=== PATIENT | male | born 1945 | race Caucasian/White ===

== ENCOUNTER → 2017-12-18 | Day surgery (SDC) | payer MEDICARE, OTHER ==
[~2017-12-18] MED LIST: ARICEPT5 MG PO; ASPIR 8181 MG; CEFAZOLIN SOD 1 GM VIAL ONE; CITALOPRAM HBR20 MG PO; DOXYCYCLINE HY100 MG PO; GLYCOPYRROLATE INJ 1MG/ 5 ML SYR ONE; HYZAAR 100-251 EACH; LIDOCAINE HCL 2% LOCAL INJ 5 ML SDV VIAL INJ ONE; NITROGLYCERIN0.4 MG SL; NORCO 10-325 T1 EACH; PRAVASTATIN SOD10 MG; PROPOFOL IV EMULSION 10 MG/ML 20 ML VIAL ONE; ROBAXIN500 MG; ZETIA10 MG PO; [UNRECOGNIZED DRUG - REMARK] INJ
[2017-12-18 16:10] VITALS: BP 120/69
--- NOTE | 2017-12-18 20:13 | Operative Report ---
DATE OF PROCEDURE: December 18, 2017 PROCEDURE PERFORMED: Colonoscopy and a polypectomy note. REFERRING PHYSICIAN: Dr. Jean Pierre Joiner INDICATIONS FOR COLONOSCOPY: Change in bowel habits, history of colon polyps. MEDICATION: Patient was done under MAC. Please see anesthesiologist note. PROCEDURE IN DETAIL: With the patient in left lateral decubitus position, flexible fiberoptic Olympus colonoscope was inserted into the rectum with ease and advanced all the way to the cecum. The scope was then withdrawn slowly. Mucosa overlying the cecum appeared to be within normal limits. Three polyps were hot biopsied, 1 polyp was snared from the ascending colon. The transverse grossly appeared to be within normal limits. Mucosa overlying the left colon revealed some patchy mild inflammatory changes, random biopsies were obtained. Two polyps were hot biopsied from the sigmoid colon. The scope was then retroflexed into the distal rectum, and small internal hemorrhoids were noted, none of which was actively bleeding. The scope was then straightened out. It was subsequently withdrawn. Patient tolerated the procedure well. IMPRESSION: 1. Ascending colon polyps x4, 3 hot biopsied and 1 snared. 2. Diverticulosis. 3. Mild patchy left-sided colitis. 4. Sigmoid colon polyps x2, hot biopsied. 5. Internal hemorrhoids, none actively bleeding. PLAN: Follow up histology. Initiate VSL#3 1 p.o. every day, Bentyl 10 mg 1 p.o. t.i.d. Patient might benefit from a followup colonoscopy in 3 years. Job#: [id number] cc:JEAN PIERRE JOINER MD
== END | disposition home or self-care (01) ==
LOC: OR 12:38
PROVIDERS: ATTEND Internal Medicine Gastroenterology
DX: K51.50 Left sided colitis without complications (principal); D12.2 Benign neoplasm of ascending colon; K59.00 Constipation, unspecified; K57.30 Diverticulosis of large intestine without perforation or abscess without bleeding; K64.8 Other hemorrhoids; I25.2 Old myocardial infarction; I10 Essential (primary) hypertension; I44.0 Atrioventricular block, first degree; R53.1 Weakness; E78.00 Pure hypercholesterolemia, unspecified; F03.90 Unspecified dementia, unspecified severity, without behavioral disturbance, psychotic disturbance, mood disturbance, and anxiety; Z79.82 Long term (current) use of aspirin; Z86.73 Personal history of transient ischemic attack (TIA), and cerebral infarction without residual deficits; Z85.3 Personal history of malignant neoplasm of breast; Z96.659 Presence of unspecified artificial knee joint
CPT/HCPCS: 45380; 45384; 45385; 88305; J0690; J2001; J3490